=== PATIENT | male | born 1960 | race Caucasian/White ===

== ENCOUNTER 2019-03-17 09:43 | Emergency (ER) | payer OTHER ==
[~2019-03-17] VITALS: Ht 157.5 cm; Wt 80.9 kg
[2019-03-17 09:58] VITALS: BP 186/92; PULSE 77; RESP 18; Ht 157.5 cm; Wt 80.9 kg
--- NOTE | 2019-03-17 11:41 | ERD ---
ER Documentation Chief Complaint Chief Complaint WOUND CHECK I&D 2 DAYS AGO HPI 58-year-old male presents for wound check. Patient states that he got an abscess drained from the anterior aspect of his right shoulder 2 days ago. The drainage was done at a different hospital. The provider put him on Keflex and given tramadol for pain. Patient denies any fevers, chills, worsening symptoms. Since he is been taking the Keflex as prescribed. Denies any allergies to medications. ROS All systems reviewed and are negative except as per history of present illness. Allergies Allergies: Coded Allergies: No Known Allergy (Unverified , 03/17/19) PMhx/Soc Hx Cardiac Disorders: Yes (htn) Hx Psychiatric Problems: No Hx Alcohol Use: No Hx Substance Use: No Hx Tobacco Use: No FmHx Family History: No diabetes, No coronary disease, No other Physical Exam Vitals Vital Signs Date Temp Pulse Resp B/P (MAP) Pulse Ox O2 O2 Flow FiO2 Time Delivery Rate 03/17/19 97.5 77 18 186/92 99 09:58 (123) Physical Exam Const: No acute distress Head: Atraumatic Eyes: Normal Conjunctiva ENT: Normal External Ears, Nose and Mouth. Neck: Full range of motion. No meningismus. Resp: Clear to auscultation bilaterally Cardio: Regular rate and rhythm, no murmurs Abd: Soft, non tender, non distended. Normal bowel sounds Skin: Approximately 3 cm drained abscess with iodoform gauze intact noted on ear aspect of left upper shoulder. There is no lymphatic streaking or discharge noted. Back: No midline or flank tenderness Ext: No cyanosis, or edema Neur: Awake and alert Psych: Normal Mood and Affect Procedures/MDM MDM: Iodoform gauze was removed. New dressing was applied. I will suspicion for worsening infection, bacteremia, or any other complication. Patient was prescribed Bactrim to be taken with the Keflex this is the medication indicated for treatment of abscesses. Advised patient to continue to use warm compresses and soaks. Patient discharged with strict ER precautions. Patient advised to follow up with PMD. All questions answered at discharge. Departure Diagnosis: Primary Impression: Encounter for wound re-check Condition: Stable DAVE AGUILAR Mar 17, 2019 11:41
[2019-03-17] MEDS ORDERED: SULF1TAB31 PO (11:42)
== END 2019-03-17 11:55 | disposition home or self-care (01) ==
LOC: FTE 09:43
DX: Z48.01 Encounter for change or removal of surgical wound dressing (principal); I10 Essential (primary) hypertension
CPT/HCPCS: 99281